=== PATIENT | female | born 1990 | race Caucasian/White ===

== ENCOUNTER 2017-12-09 03:51 | Emergency (ER) | payer OTHER ==
[~2017-12-09] VITALS: Ht 152.4 cm; Wt 77.6 kg
[2017-12-09 05:13] LABS: RAPID INFLUENZA A Negative (Negative); RAPID INFLUENZA B Negative (Negative)
[2017-12-09 05:27] LABS: BASOPHILS # (AUTO) 0.02 x10^3/uL (0-0.1); BASOPHILS % (AUTO) 0 % (0-1); EOSINOPHILS # (AUTO) 0.05 x10^3/uL (0-0.4); EOSINOPHILS % (AUTO) 1 % (1-7); LYMPHOCYTES # (AUTO) 2.46 x10^3/uL (1-3.4); LYMPHOCYTES % (AUTO) 36 % (22-44); MD NO; MEAN CORPUSCULAR HEMOGLOBIN 32.7 pg (27.0-34.8); MEAN CORPUSCULAR HGB CONC 34.7 g/dL (32.4-35.8); MEAN CORPUSCULAR VOLUME 94.4 fL (80-100); MEAN PLATELET VOLUME 7.1 fL (7.4-10.4); MONOCYTES # (AUTO) 0.33 x10^3/uL (0.2-0.8); MONOCYTES % (AUTO) 5 % (2-9); NEUTROPHILS # (AUTO) 4.01 x10^3/uL (1.8-6.8); NEUTROPHILS % (AUTO) 58 % (42-75); PLATELET COUNT 283 x10^3/uL (130-400); RED BLOOD COUNT 4.23 x10^6/uL (3.82-5.3); RED CELL DISTRIBUTION WIDTH 14.5 % (9.6-15.2)
[2017-12-09 05:35] LABS: MICROSCOPIC NOT IND
[2017-12-09 05:37] LABS: CULTURE INDICATED? NO
[2017-12-09 05:38] LABS: ALANINE AMINOTRANSFERASE 67 U/L (12-78); ALBUMIN 2.8 g/dL (3.4-5.0); ANION GAP 8 mmol/L (5-15); CALCIUM 8.1 mg/dL (8.5-10.1); CHLORIDE 105 mmol/L (98-107); CREATININE 0.59 mg/dL (0.55-1.02)
[2017-12-09 05:56] LABS: ALKALINE PHOSPHATASE 283 U/L (45-117); BILIRUBIN,TOTAL 0.8 mg/dL (0.2-1.0); TOTAL PROTEIN 6.8 g/dL (6.4-8.2)
[2017-12-09 06:48] VITALS: BP 119/78
== END 2017-12-09 07:45 | disposition home or self-care (01) ==
LOC: ED 06:12
DX: O26.892 Other specified pregnancy related conditions, second trimester (principal); Z3A.17 17 weeks gestation of pregnancy; K80.50 Calculus of bile duct without cholangitis or cholecystitis without obstruction; J00 Acute nasopharyngitis [common cold]; R05 Cough; R10.2 Pelvic and perineal pain; R10.32 Left lower quadrant pain
CPT/HCPCS: 36415; 71046; 76700; 76805; 80053; 81003; 83690; 84702; 85025; 87081; 87400; 87880; 99285

== ENCOUNTER 2018-02-24 10:56 | Outpatient (CLI) | payer OTHER ==
[~2018-02-24] VITALS: Ht 152.4 cm; Wt 78.2 kg
[2018-02-24 11:22] VITALS: BP 105/59
[2018-02-24] MEDS ORDERED: PREN-3 PO (11:30)
== END 2018-02-24 11:35 | disposition home or self-care (01) ==
LOC: LDOP 10:56
PROVIDERS: ATTEND Obstetrics & Gynecology
DX: O26.899 Other specified pregnancy related conditions, unspecified trimester (principal); R10.9 Unspecified abdominal pain; Z3A.00 Weeks of gestation of pregnancy not specified
CPT/HCPCS: 59025; 99211; G0463

== ENCOUNTER 2018-02-24 11:44 | Observation (INO) | payer OTHER ==
[~2018-02-24] VITALS: Ht 152.4 cm; Wt 78.9 kg
[~2018-02-24 11:44] MED LIST: PREN-3 PO
[2018-02-24] MEDS ORDERED: SODIUM CHLORIDE FLUSH 10ML SYR IVF ONE (12:30)
[2018-02-24 12:55] LABS: BASOPHILS # (AUTO) 0.04 x10^3/uL (0-0.1); BASOPHILS % (AUTO) 0 % (0-1); EOSINOPHILS # (AUTO) 0.12 x10^3/uL (0-0.4); EOSINOPHILS % (AUTO) 1 % (1-7); LYMPHOCYTES # (AUTO) 2.17 x10^3/uL (1-3.4); LYMPHOCYTES % (AUTO) 20 % (22-44); MD NO; MEAN CORPUSCULAR HEMOGLOBIN 33.5 pg (27.0-34.8); MEAN CORPUSCULAR HGB CONC 34.3 g/dL (32.4-35.8); MEAN CORPUSCULAR VOLUME 97.7 fL (80-100); MEAN PLATELET VOLUME 7.1 fL (7.4-10.4); MONOCYTES # (AUTO) 0.37 x10^3/uL (0.2-0.8); MONOCYTES % (AUTO) 4 % (2-9); NEUTROPHILS # (AUTO) 8.15 x10^3/uL (1.8-6.8); NEUTROPHILS % (AUTO) 75 % (42-75); PLATELET COUNT 312 x10^3/uL (130-400); RED BLOOD COUNT 4.18 x10^6/uL (3.82-5.3); RED CELL DISTRIBUTION WIDTH 13.7 % (9.6-15.2)
[2018-02-24 13:01] LABS: MICROSCOPIC AUTO
[2018-02-24 13:02] LABS: CULTURE INDICATED? YES
[2018-02-24 13:07] LABS: ALANINE AMINOTRANSFERASE 24 U/L (12-78); ANION GAP 14 mmol/L (5-15); CALCIUM 9.2 mg/dL (8.5-10.1); CHLORIDE 107 mmol/L (98-107)
[2018-02-24 13:09] LABS: ALKALINE PHOSPHATASE 96 U/L (45-117); BILIRUBIN,TOTAL 0.5 mg/dL (0.2-1.0); TOTAL PROTEIN 6.9 g/dL (6.4-8.2)
[2018-02-24 16:15] VITALS: BP 102/41
[2018-02-24] MEDS ORDERED: ONDANSETRON 2MG/ML, 2ML IV PRN (19:30)
[2018-02-24] MEDS ORDERED: DIPHENHYDRAMINE 50 MG/ML, 1ML IVPush PRN (19:30)
[2018-02-24] MEDS ORDERED: ONDANSETRON ODT 4 MG PO PRN (19:30)
[2018-02-24] MEDS ORDERED: LACTATED RINGERS 1,000 ML IV SCH (19:30)
[2018-02-24] MEDS ORDERED: MORPHINE SULFATE 4 MG/ML, 1ML IV PRN (19:30)
== END 2018-02-24 20:44 | disposition home or self-care (01) ==
LOC: ED 14:21 → EDIP 14:22 → ED 14:32 → 3NE 15:15
PROVIDERS: ADMIT Colon & Rectal Surgery; ATTEND Colon & Rectal Surgery
DX: O26.613 Liver and biliary tract disorders in pregnancy, third trimester (principal); O26.893 Other specified pregnancy related conditions, third trimester; K80.20 Calculus of gallbladder without cholecystitis without obstruction; N13.30 Unspecified hydronephrosis; Z3A.28 28 weeks gestation of pregnancy
CPT/HCPCS: 36415; 76700; 80053; 81001; 85025; 87086; 99285; G0378

== ENCOUNTER 2018-11-16 18:10 | Emergency (ER) | payer OTHER ==
[~2018-11-16] VITALS: Ht 165.1 cm; Wt 75.6 kg
[~2018-11-16 18:10] MED LIST changes: +HYDR-3240 PO; +IBUP-1222 PO
[2018-11-16 18:18] VITALS: BP 140/85
[2018-11-16] MEDS ORDERED: MORPHINE SULFATE 4 MG/ML, 1ML IVPush PRN (18:30)
[2018-11-16] MEDS ORDERED: ONDANSETRON 2MG/ML, 2ML IVPush ONE (18:30)
[2018-11-16] MEDS ORDERED: SODIUM CHLORIDE FLUSH 10ML SYR IVF ONE (18:30)
[2018-11-16] MEDS ORDERED: MORPHINE SULFATE 4 MG/ML, 1ML ONE (18:31)
[2018-11-16] MEDS ORDERED: ONDANSETRON 2MG/ML, 2ML ONE (18:31)
[2018-11-16 18:42] LABS: BASOPHILS # (AUTO) 0.06 x10^3/uL (0-0.1); BASOPHILS % (AUTO) 1 % (0-1); EOSINOPHILS # (AUTO) 0.28 x10^3/uL (0-0.4); EOSINOPHILS % (AUTO) 3 % (1-7); LYMPHOCYTES # (AUTO) 3.25 x10^3/uL (1-3.4); LYMPHOCYTES % (AUTO) 31 % (22-44); MD NO; MEAN CORPUSCULAR HEMOGLOBIN 33.3 pg (27.0-34.8); MEAN CORPUSCULAR HGB CONC 34.8 g/dL (32.4-35.8); MEAN CORPUSCULAR VOLUME 95.8 fL (80-100); MEAN PLATELET VOLUME 7.9 fL (7.4-10.4); MONOCYTES # (AUTO) 0.48 x10^3/uL (0.2-0.8); MONOCYTES % (AUTO) 5 % (2-9); NEUTROPHILS # (AUTO) 6.47 x10^3/uL (1.8-6.8); NEUTROPHILS % (AUTO) 61 % (42-75); PLATELET COUNT 375 x10^3/uL (130-400); RED BLOOD COUNT 5.07 x10^6/uL (3.82-5.3); RED CELL DISTRIBUTION WIDTH 12.6 % (9.6-15.2)
[2018-11-16] MEDS ORDERED: ONDANSETRON ODT 4 MG ONE (18:42)
[2018-11-16] MEDS ORDERED: HYDROmorphone 2 MG/ML, 1ML ONE (18:43)
[2018-11-16 18:50] LABS: ALANINE AMINOTRANSFERASE 36 U/L (12-78); ALBUMIN 4.1 g/dL (3.4-5.0); ANION GAP 7 mmol/L (5-15); CALCIUM 8.9 mg/dL (8.5-10.1); CHLORIDE 105 mmol/L (98-107); CREATININE 0.87 mg/dL (0.55-1.02)
[2018-11-16 18:55] LABS: ALKALINE PHOSPHATASE 78 U/L (45-117); BILIRUBIN,TOTAL 0.6 mg/dL (0.2-1.0); TOTAL PROTEIN 8.3 g/dL (6.4-8.2)
[2018-11-16 18:57] LABS: MICROSCOPIC AUTO
--- NOTE | 2018-11-16 18:57 | NUR ---
PT REPORTS "GALLBLADDER ATTACK" STATES HX OF SAME, LAST TIME SHE WAS 32 WEEKS PREG "AND THEY DIDNT DO SURGERY BECAUSE I WAS " THAT WAS ABOUT 8 MO AGO. STATES THIS FEELS THE SAME JUST WORSE. REPORTS NAUSEA, DENIES VOMITING.
--- NOTE | 2018-11-16 18:57 | NUR ---
LABS DRAWN, PT HESITANT FOR IV START. PT EDUCATED ON REASON, (MED ADMINISTRATION AND TO ALLOW FOR FURTHER CARE) PT REQUESTING TO HOLD OFF ON IV UNTIL NEEDED AND REQ IM AND PO MEDICATIONS. PA AWARE, ORDERS CHANGED.
[2018-11-16 18:59] LABS: CULTURE INDICATED? YES
[2018-11-16] MEDS ORDERED: HYDROmorphone 1 MG/ML, 1ML IM ONE (19:00)
[2018-11-16] MEDS ORDERED: ONDANSETRON ODT 4 MG PO ONE (19:00)
--- NOTE | 2018-11-16 19:28 | NUR ---
PT REPORTS DECREASED PAIN, PA IN FOR UPDATE, TO EVAL, PT DENIES ANY QUESTIONS AT THIS TIME
== END 2018-11-16 20:13 | disposition home or self-care (01) ==
LOC: ED 19:15
DX: K80.20 Calculus of gallbladder without cholecystitis without obstruction (principal); N30.00 Acute cystitis without hematuria
CPT/HCPCS: 36415; 76700; 80053; 81001; 83690; 84703; 85025; 87086; 96372; 99284; J1170; Q0162

== ENCOUNTER 2019-02-09 11:49 | Emergency (ER) | payer SELFPAY ==
[~2019-02-09] VITALS: Ht 152.4 cm; Wt 78.6 kg
--- NOTE | 2019-02-09 12:05 | NUR ---
First contact pt. Pt states, "I was at my desk at work and stood up to go on my break and started having abdominal pain (RLQ and LLQ), lower back pain and leg tingling." Per pt, "I just ate 30 minutes ago (1130), and breakfast at 7am. Both my legs feel tingling and my legs from hips to knees on the front feels abnormal." ED MD at bedside. ED RN nel for physical assessment with HELLEN. Pt states her last period was "2 weeks ago". NADN. Pt connected to NIBP and continous pulse ox. Call light within reach.
[2019-02-09 12:29] LABS: MICROSCOPIC AUTO
[2019-02-09] MEDS ORDERED: MORPHINE SULFATE 4 MG/ML, 1ML IVPush PRN (12:30)
[2019-02-09] MEDS ORDERED: ONDANSETRON 2MG/ML, 2ML IVPush PRN (12:30)
[2019-02-09 12:32] LABS: CULTURE INDICATED? YES
[2019-02-09] MEDS ORDERED: ONDANSETRON 2MG/ML, 2ML ONE (12:38)
[2019-02-09] MEDS ORDERED: KETOROLAC 30 MG/1 ML ONE (12:38)
[2019-02-09 12:52] LABS: BASOPHILS # (AUTO) 0.05 x10^3/uL (0-0.1); BASOPHILS % (AUTO) 1 % (0-1); EOSINOPHILS # (AUTO) 0.56 x10^3/uL (0-0.4); EOSINOPHILS % (AUTO) 6 % (1-7); LYMPHOCYTES # (AUTO) 2.76 x10^3/uL (1-3.4); LYMPHOCYTES % (AUTO) 30 % (22-44); MD NO; MEAN CORPUSCULAR HEMOGLOBIN 32.9 pg (27.0-34.8); MEAN CORPUSCULAR HGB CONC 34.7 g/dL (32.4-35.8); MEAN CORPUSCULAR VOLUME 94.8 fL (80-100); MEAN PLATELET VOLUME 7.8 fL (7.4-10.4); MONOCYTES # (AUTO) 0.48 x10^3/uL (0.2-0.8); MONOCYTES % (AUTO) 5 % (2-9); NEUTROPHILS # (AUTO) 5.43 x10^3/uL (1.8-6.8); NEUTROPHILS % (AUTO) 59 % (42-75); PLATELET COUNT 317 x10^3/uL (130-400); RED BLOOD COUNT 5.23 x10^6/uL (3.82-5.3); RED CELL DISTRIBUTION WIDTH 12.9 % (9.6-15.2)
[2019-02-09 12:59] LABS: ALANINE AMINOTRANSFERASE 58 U/L (12-78); ALBUMIN 4.6 g/dL (3.4-5.0); ANION GAP 6 mmol/L (5-15); CALCIUM 9.4 mg/dL (8.5-10.1); CHLORIDE 105 mmol/L (98-107); CREATININE 0.82 mg/dL (0.55-1.02)
[2019-02-09] MEDS ORDERED: KETOROLAC 30 MG/1 ML IVPush ONE (13:00)
[2019-02-09 13:05] LABS: ALKALINE PHOSPHATASE 79 U/L (45-117); BILIRUBIN,TOTAL 0.8 mg/dL (0.2-1.0); TOTAL PROTEIN 8.3 g/dL (6.4-8.2)
--- NOTE | 2019-02-09 13:17 | NUR ---
LATE NOTE TONG FOR 1230: Pt requesting "something less strong than morphine, I don't like it." ED MD aware. Provided at 1243 pt medication per EMAR. Pt appreciative.
--- NOTE | 2019-02-09 13:17 | NUR ---
Pt transported on gurney to imaging.
--- NOTE | 2019-02-09 15:20 | NUR ---
PT. WAS GIVEN DISCHARGE INSTRUCTIONS AND SCRIPTS. UNDERSTANDING WAS VERBALIZED ALONG WITH WILLINGNESS TO COMPLY. PT.'S IV WAS DCD',CATH TIP INTACT. PRESSURE HELD WITH HEMOSTASIS ACHIEVED. PT. WAS AMBULATORY TO THE DISCHARGE DESK. VSS.
[2019-02-09 15:21] VITALS: BP 109/70
[2019-02-09] MEDS ORDERED: OMNIPAQUE 350 MG/ML, 100ML BOTTLE ONE (15:58)
== END 2019-02-09 15:26 | disposition home or self-care (01) ==
LOC: ED 13:44
DX: R10.30 Lower abdominal pain, unspecified (principal)
CPT/HCPCS: 36415; 74177; 76830; 80053; 81001; 83690; 84703; 85025; 87086; 96374; 96375; 99284; J1885; J2405; Q9967

== ENCOUNTER 2019-05-26 19:27 | Emergency (ER) | payer SELFPAY ==
[~2019-05-26] VITALS: Ht 152.4 cm; Wt 82.7 kg
[2019-05-26 20:25] LABS: BASOPHILS # (AUTO) 0.02 x10^3/uL (0-0.1); BASOPHILS % (AUTO) 0 % (0-1); EOSINOPHILS # (AUTO) 0.38 x10^3/uL (0-0.4); EOSINOPHILS % (AUTO) 4 % (1-7); LYMPHOCYTES # (AUTO) 3.04 x10^3/uL (1-3.4); LYMPHOCYTES % (AUTO) 34 % (22-44); MD NO; MEAN CORPUSCULAR HEMOGLOBIN 32.8 pg (27.0-34.8); MEAN CORPUSCULAR HGB CONC 33.6 g/dL (32.4-35.8); MEAN CORPUSCULAR VOLUME 97.8 fL (80-100); MEAN PLATELET VOLUME 7.4 fL (7.4-10.4); MONOCYTES # (AUTO) 0.44 x10^3/uL (0.2-0.8); MONOCYTES % (AUTO) 5 % (2-9); NEUTROPHILS % (AUTO) 56 % (42-75); PLATELET COUNT 350 x10^3/uL (130-400); RED BLOOD COUNT 4.64 x10^6/uL (3.82-5.3)
[2019-05-26 20:29] LABS: ALANINE AMINOTRANSFERASE 46 U/L (12-78); ALBUMIN 3.8 g/dL (3.4-5.0); ANION GAP 6 mmol/L (5-15); CHLORIDE 107 mmol/L (98-107); CREATININE 0.73 mg/dL (0.55-1.02)
[2019-05-26 20:34] LABS: ALKALINE PHOSPHATASE 69 U/L (45-117); BILIRUBIN,TOTAL 0.6 mg/dL (0.2-1.0); TOTAL PROTEIN 7.6 g/dL (6.4-8.2)
[2019-05-26 20:39] LABS: CULTURE INDICATED? YES; MICROSCOPIC INDICATED
[2019-05-26 20:52] VITALS: BP 113/53
[2019-05-31] MEDS ORDERED: PRENATAL (11:20)
== END 2019-05-26 21:58 | disposition home or self-care (01) ==
LOC: ED 21:38
DX: O26.891 Other specified pregnancy related conditions, first trimester (principal); R10.32 Left lower quadrant pain; Z3A.01 Less than 8 weeks gestation of pregnancy
CPT/HCPCS: 36415; 76801; 80053; 81001; 84702; 85025; 86901; 87086; 99284

== ENCOUNTER 2019-05-31 10:52 | Emergency (ER) | payer SELFPAY ==
[~2019-05-31] VITALS: Ht 152.4 cm; Wt 82.7 kg
[2019-05-31 12:49] VITALS: BP 119/72
== END 2019-05-31 13:55 | disposition home or self-care (01) ==
LOC: ED 13:49
DX: O26.891 Other specified pregnancy related conditions, first trimester (principal); R10.32 Left lower quadrant pain; Z3A.08 8 weeks gestation of pregnancy
CPT/HCPCS: 36415; 76801; 81001; 84702; 87086; 99284

== ENCOUNTER 2019-08-06 17:56 | Emergency (ER) | payer OTHER ==
[~2019-08-06] VITALS: Ht 152.4 cm; Wt 79.5 kg
[~2019-08-06 17:56] MED LIST changes: +PRENATAL
[2019-08-06 17:59] VITALS: BP 108/72
--- NOTE | 2019-08-06 18:30 | NUR ---
DIARRHEA AND ABDOMINAL CRAMPING IN WAVES FOR 2 DAYS. 16 WEEKS
[2019-08-06 19:00] LABS: BASOPHILS # (AUTO) 0.02 x10^3/uL (0-0.1); BASOPHILS % (AUTO) 0 % (0-1); EOSINOPHILS # (AUTO) 0.11 x10^3/uL (0-0.4); EOSINOPHILS % (AUTO) 2 % (1-7); LYMPHOCYTES # (AUTO) 1.94 x10^3/uL (1-3.4); LYMPHOCYTES % (AUTO) 29 % (22-44); MD NO; MEAN CORPUSCULAR HEMOGLOBIN 34.2 pg (27.0-34.8); MEAN CORPUSCULAR HGB CONC 34.6 g/dL (32.4-35.8); MEAN CORPUSCULAR VOLUME 98.8 fL (80-100); MEAN PLATELET VOLUME 7.2 fL (7.4-10.4); MONOCYTES # (AUTO) 0.34 x10^3/uL (0.2-0.8); MONOCYTES % (AUTO) 5 % (2-9); NEUTROPHILS # (AUTO) 4.31 x10^3/uL (1.8-6.8); NEUTROPHILS % (AUTO) 64 % (42-75); PLATELET COUNT 296 x10^3/uL (130-400); RED BLOOD COUNT 4.03 x10^6/uL (3.82-5.3); RED CELL DISTRIBUTION WIDTH 14.5 % (9.6-15.2)
[2019-08-06] MEDS ORDERED: SODIUM CHLORIDE 0.9% 1,000ML IVBOLUS ONE (19:00)
[2019-08-06] MEDS ORDERED: SODIUM CHLORIDE FLUSH 10ML SYR IVF ONE (19:00)
--- NOTE | 2019-08-06 19:02 | NUR ---
REPORT TO SEE CAMARILLO
[2019-08-06 19:12] LABS: ALBUMIN 3.1 g/dL (3.4-5.0); ANION GAP 8 mmol/L (5-15); CALCIUM 8.7 mg/dL (8.5-10.1); CHLORIDE 107 mmol/L (98-107)
[2019-08-06 19:16] LABS: ALANINE AMINOTRANSFERASE 29 U/L (12-78); ALKALINE PHOSPHATASE 93 U/L (45-117); BILIRUBIN,TOTAL 0.7 mg/dL (0.2-1.0); TOTAL PROTEIN 6.8 g/dL (6.4-8.2)
[2019-08-06 19:54] LABS: MICROSCOPIC AUTO
[2019-08-06 19:55] LABS: CULTURE INDICATED? YES
--- NOTE | 2019-08-06 20:01 | NUR ---
urine to lab and L&D RN to bedside and FHT at 150
== END 2019-08-06 21:33 | disposition home or self-care (01) ==
LOC: ED 19:00
DX: O26.892 Other specified pregnancy related conditions, second trimester (principal); R19.7 Diarrhea, unspecified; Z3A.16 16 weeks gestation of pregnancy
CPT/HCPCS: 36415; 80053; 81001; 83690; 85025; 87086; 96360; 99283; J7030

== ENCOUNTER 2019-10-10 12:22 | Emergency (ER) | payer OTHER ==
[~2019-10-10] VITALS: Ht 152.4 cm; Wt 82.1 kg
--- NOTE | 2019-10-10 12:54 | NUR ---
Pt has been seen by L&D and cleared to be seen in ER for possible allergic RXN. L&D would like pt to return after treatment in ED for NST.
--- NOTE | 2019-10-10 13:06 | NUR ---
Pt to ED from work. allergic rx at 1130 to unknown substance (had apple and water today). benadryl 25 mg at 1140. noted red rash face/back/belly and itchiness. no SOB. previous allergic rx to pork 5 years ago. no other allergies. 25 weeks . went to L&D, was sent to ED, pt to go to LD after ED dc. vss. lab at bedside. awaiting md quinn. call delaney in reach. pt calm, cooperative, NAD, slight redness noted to back where pt was scratching.
[2019-10-10] MEDS ORDERED: prenatal PO (13:10)
[2019-10-10 13:11] LABS: BASOPHILS # (AUTO) 0.04 x10^3/uL (0-0.1); BASOPHILS % (AUTO) 0 % (0-1); EOSINOPHILS % (AUTO) 2 % (1-7); LYMPHOCYTES # (AUTO) 2.31 x10^3/uL (1-3.4); LYMPHOCYTES % (AUTO) 24 % (22-44); MD NO; MEAN CORPUSCULAR HEMOGLOBIN 34.6 pg (27.0-34.8); MEAN CORPUSCULAR HGB CONC 34.8 g/dL (32.4-35.8); MEAN CORPUSCULAR VOLUME 99.3 fL (80-100); MEAN PLATELET VOLUME 6.6 fL (7.4-10.4); MONOCYTES # (AUTO) 0.32 x10^3/uL (0.2-0.8); MONOCYTES % (AUTO) 3 % (2-9); NEUTROPHILS # (AUTO) 6.67 x10^3/uL (1.8-6.8); NEUTROPHILS % (AUTO) 70 % (42-75); PLATELET COUNT 333 x10^3/uL (130-400); RED BLOOD COUNT 4.26 x10^6/uL (3.82-5.3); RED CELL DISTRIBUTION WIDTH 13.7 % (9.6-15.2)
[2019-10-10 13:21] LABS: ALANINE AMINOTRANSFERASE 25 U/L (12-78); ALBUMIN 3.5 g/dL (3.4-5.0); ANION GAP 8 mmol/L (5-15); CALCIUM 9.3 mg/dL (8.5-10.1); CHLORIDE 105 mmol/L (98-107); CREATININE 0.62 mg/dL (0.55-1.02)
[2019-10-10 13:23] LABS: ALKALINE PHOSPHATASE 94 U/L (45-117); BILIRUBIN,TOTAL 0.5 mg/dL (0.2-1.0)
[2019-10-10] MEDS ORDERED: DIPHENHYDRAMINE 25 MG CAPSULE PO ONE (13:30)
--- NOTE | 2019-10-10 13:48 | NUR ---
UA COLLECTED AND SENT TO LAB
[2019-10-10] MEDS ORDERED: DIPHENHYDRAMINE 25 MG CAPSULE ONE (14:08)
[2019-10-10 14:09] LABS: CULTURE INDICATED? YES; MICROSCOPIC INDICATED
--- NOTE | 2019-10-10 14:41 | NUR ---
AWAITING MICRO RESULTS ON UA AT THIS TIME. CALL LIGHT WITHIN REACH. AWAITING DISPO
--- NOTE | 2019-10-10 14:45 | NUR ---
PT STATES FEELING LESS ITCHY AFTER MEDICATION.
[2019-10-10 15:05] VITALS: BP 107/64
--- NOTE | 2019-10-10 15:07 | NUR ---
ALL RESUTLS BACK AT THIS TIME, CHART UP FOR RECHECK
--- NOTE | 2019-10-10 15:40 | NUR ---
TASK RN: Patient/Caregiver given discharge instructions and they have confirmed that they understand the instructions. Patient ambulatory with steady gait. PT TAKEN VIA WHEELCHAIR BACK TO L&D FOR NST. PT LEFT WITH ALL PERSONAL BELONGINGS. L&D AWARE PT IS COMING BACK TO THEM
== END 2019-10-10 15:44 | disposition home or self-care (01) ==
LOC: ED 15:35
DX: O23.12 Infections of bladder in pregnancy, second trimester (principal); L50.0 Allergic urticaria; Z3A.26 26 weeks gestation of pregnancy
CPT/HCPCS: 36415; 80053; 81001; 85025; 87086; 99283; J7509; Q0163

== ENCOUNTER 2019-10-10 15:51 | Outpatient (CLI) | payer OTHER ==
[~2019-10-10] VITALS: Ht 152.4 cm; Wt 82.7 kg
[~2019-10-10 15:51] MED LIST changes: +prenatal PO
[2019-10-10 16:22] VITALS: BP 117/66
== END 2019-10-10 16:50 | disposition home or self-care (01) ==
LOC: LDOP 15:51
PROVIDERS: ATTEND Obstetrics & Gynecology
DX: Z34.02 Encounter for supervision of normal first pregnancy, second trimester (principal); Z3A.26 26 weeks gestation of pregnancy
CPT/HCPCS: 99211; G0463

== ENCOUNTER 2019-12-02 18:29 | Outpatient (CLI) | payer OTHER ==
[~2019-12-02] VITALS: Ht 152.4 cm; Wt 84.5 kg
[2019-12-02 18:31] VITALS: BP 104/61
== END 2019-12-02 19:24 | disposition home or self-care (01) ==
LOC: LDOP 18:29
PROVIDERS: ATTEND Obstetrics & Gynecology
DX: O36.8130 Decreased fetal movements, third trimester, not applicable or unspecified (principal); Z3A.32 32 weeks gestation of pregnancy
CPT/HCPCS: 59025; 76819; 99211; G0463

== ENCOUNTER 2019-12-19 14:46 | Outpatient (CLI) | payer OTHER ==
[~2019-12-19] VITALS: Ht 152.4 cm; Wt 84.5 kg
[2019-12-19 14:55] VITALS: BP 121/59
[2019-12-19] MEDS ORDERED: PREN1TAB60 PO (15:03)
[2019-12-19] MEDS ORDERED: ONDANSETRON ODT 4 MG ONE (15:18)
[2019-12-19] MEDS ORDERED: TERBUTALINE 1 MG/ML, 1ML ONE (15:18)
[2019-12-19 15:28] LABS: MICROSCOPIC INDICATED
[2019-12-19] MEDS ORDERED: ONDANSETRON ODT 4 MG PO ONE (15:30)
[2019-12-19] MEDS ORDERED: TERBUTALINE 1 MG/ML, 1ML SQ ONE (15:30)
[2019-12-19] MEDS ORDERED: ACETAMINOPHEN 500 MG TABLET ONE (16:53)
[2019-12-19] MEDS ORDERED: ACETAMINOPHEN 500 MG TABLET PO ONE (17:00)
[2019-12-19] MEDS ORDERED: BETAMETHASONE 6 MG/ML, 5ML IM ONE (19:30)
== END 2019-12-19 19:15 | disposition home or self-care (01) ==
LOC: LDOP 14:46
PROVIDERS: ATTEND Obstetrics & Gynecology
DX: O60.03 Preterm labor without delivery, third trimester (principal); Z3A.34 34 weeks gestation of pregnancy
CPT/HCPCS: 59025; 81001; 87086; 96372; 99211; J0702; J3105; Q0162; G0463

== ENCOUNTER 2019-12-23 16:08 | Outpatient (CLI) | payer OTHER ==
[~2019-12-23] VITALS: Ht 152.4 cm; Wt 84.5 kg
[~2019-12-23 16:08] MED LIST changes: +PREN1TAB60 PO
[2019-12-23 17:25] VITALS: BP 103/62
[2019-12-23 17:51] LABS: MICROSCOPIC INDICATED
[2019-12-23] MEDS ORDERED: DIPH25CA61 PO (18:48)
[2019-12-23 19:00] LABS: BASOPHILS # (AUTO) 0.03 x10^3/uL (0-0.1); BASOPHILS % (AUTO) 0 % (0-1); EOSINOPHILS # (AUTO) 0.14 x10^3/uL (0-0.4); EOSINOPHILS % (AUTO) 1 % (1-7); LYMPHOCYTES # (AUTO) 2.36 x10^3/uL (1-3.4); LYMPHOCYTES % (AUTO) 22 % (22-44); MD NO; MEAN CORPUSCULAR HEMOGLOBIN 34.8 pg (27.0-34.8); MEAN CORPUSCULAR VOLUME 99.6 fL (80-100); MEAN PLATELET VOLUME 7.2 fL (7.4-10.4); MONOCYTES # (AUTO) 0.46 x10^3/uL (0.2-0.8); MONOCYTES % (AUTO) 4 % (2-9); NEUTROPHILS # (AUTO) 7.96 x10^3/uL (1.8-6.8); NEUTROPHILS % (AUTO) 73 % (42-75); PLATELET COUNT 277 x10^3/uL (130-400); RED BLOOD COUNT 4.24 x10^6/uL (3.82-5.3); RED CELL DISTRIBUTION WIDTH 13.7 % (9.6-15.2)
== END 2019-12-23 19:40 | disposition home or self-care (01) ==
LOC: LDOP 16:08
PROVIDERS: ATTEND Obstetrics & Gynecology
DX: O26.893 Other specified pregnancy related conditions, third trimester (principal); R10.9 Unspecified abdominal pain; Z3A.35 35 weeks gestation of pregnancy
CPT/HCPCS: 36415; 59025; 81001; 85025; 87086; 99211; G0463

== ENCOUNTER 2020-01-02 04:12 | Outpatient (CLI) | payer OTHER ==
[~2020-01-02] VITALS: Ht 152.4 cm; Wt 38.2 kg
[~2020-01-02 04:12] MED LIST changes: +DIPH25CA61 PO
[2020-01-02 04:50] LABS: MICROSCOPIC INDICATED
== END 2020-01-02 05:58 | disposition home or self-care (01) ==
LOC: LDOP 04:12
PROVIDERS: ATTEND Obstetrics & Gynecology
DX: O62.9 Abnormality of forces of labor, unspecified (principal); Z3A.36 36 weeks gestation of pregnancy
CPT/HCPCS: 59025; 81001; 87086; 89060; 99211; G0463; Q0114

== ENCOUNTER 2020-01-05 23:13 | Outpatient (CLI) | payer OTHER ==
[~2020-01-05] VITALS: Ht 152.4 cm; Wt 84.1 kg
[2020-01-05 23:42] VITALS: BP 116/66
== END 2020-01-06 00:36 | disposition home or self-care (01) ==
LOC: LDOP 23:13
PROVIDERS: ATTEND Obstetrics & Gynecology
DX: O42.913 Preterm premature rupture of membranes, unspecified as to length of time between rupture and onset of labor, third trimester (principal); Z3A.36 36 weeks gestation of pregnancy
CPT/HCPCS: 59025; 89060; 99211; G0463; Q0114

== ENCOUNTER 2020-01-13 21:12 | Inpatient (IN) | payer OTHER ==
[~2020-01-13] VITALS: Ht 152.4 cm; Wt 85.9 kg
[2020-01-13] MEDS ORDERED: OXYTOCIN 30U/ 0.9% NaCL 500ML 500 ML ONE (21:28)
[2020-01-13] MEDS ORDERED: FENTANYL PF 100 MCG/2ML ONE ×2 (21:28→22:13)
[2020-01-13] MEDS ORDERED: NEWBORN KIT ONE (21:28)
[2020-01-13] MEDS ORDERED: LACTATED RINGERS 1,000 ML IV SCH ×2 (21:29→21:30)
[2020-01-13] MEDS: D5%-LACTATED RINGERS 1,000 ML IV SCH (21:29)
[2020-01-13] MEDS ORDERED: OXYTOCIN 30U/ 0.9% NaCL 500ML 500 ML IV ONE (21:29)
[2020-01-13] MEDS ORDERED: LACTATED RINGERS 1,000 ML IVBOLUS PRN ×2 (21:30→22:00)
[2020-01-13] MEDS ORDERED: EPHEDRINE 50 MG/ML, 1ML IVPush PRN ×2 (21:30→22:00)
[2020-01-13] MEDS ORDERED: ONDANSETRON 2MG/ML, 2ML IVPush PRN (21:30)
[2020-01-13] MEDS ORDERED: FENTANYL PF 100 MCG/2ML IV PRN (21:30)
[2020-01-13] MEDS ORDERED: FENTANYL PF 100 MCG/2ML IVPush PRN (21:30)
[2020-01-13] MEDS ORDERED: TERBUTALINE 1 MG/ML, 1ML SQ PRN ×2 (21:30→22:00)
[2020-01-13] MEDS ORDERED: FENTANYL/BUPIV./NS/PF 250 ML EPIDCONT SCH ×2 (21:30→21:36)
[2020-01-13 21:54] VITALS: BP 120/76
[2020-01-13 21:58] LABS: BASOPHILS # (AUTO) 0.13 x10^3/uL (0-0.1); BASOPHILS % (AUTO) 1 % (0-1); EOSINOPHILS # (AUTO) 0.14 x10^3/uL (0-0.4); EOSINOPHILS % (AUTO) 1 % (1-7); LYMPHOCYTES # (AUTO) 2.25 x10^3/uL (1-3.4); LYMPHOCYTES % (AUTO) 18 % (22-44); MD NO; MEAN CORPUSCULAR HEMOGLOBIN 34.4 pg (27.0-34.8); MEAN CORPUSCULAR VOLUME 98.5 fL (80-100); MEAN PLATELET VOLUME 7.5 fL (7.4-10.4); MONOCYTES # (AUTO) 0.39 x10^3/uL (0.2-0.8); MONOCYTES % (AUTO) 3 % (2-9); NEUTROPHILS # (AUTO) 9.64 x10^3/uL (1.8-6.8); NEUTROPHILS % (AUTO) 77 % (42-75); PLATELET COUNT 273 x10^3/uL (130-400); RED BLOOD COUNT 4.14 x10^6/uL (3.82-5.3); RED CELL DISTRIBUTION WIDTH 13.6 % (9.6-15.2)
[2020-01-13] MEDS ORDERED: FENTANYL PF 500 MCG, BUPIVACAINE/PF 0.5%, 30ML 62.5 ML in SODIUM CHLORIDE 0.9% 177.5 ML EPIDCONT SCH (22:00)
[2020-01-13] MEDS ORDERED: BUPIVACAINE 0.25% ONE (22:13)
[2020-01-13] MEDS ORDERED: LIDOCAINE/PF 1.5%-EPI 1:200K, 30ML ONE (22:17)
[2020-01-14] MEDS: LACTATED RINGERS 1,000 ML IV SCH ×2 (00:18→05:36)
[2020-01-14] MEDS ORDERED: ONDANSETRON 2MG/ML, 2ML ONE (00:42)
[2020-01-14] MEDS ORDERED: IBUPROFEN 800 MG TABLET ONE (04:17)
[2020-01-14] MEDS ORDERED: OXYcodone IR 5MG TABLET PO PRN ×2 (04:30)
[2020-01-14] MEDS ORDERED: SIMETHICONE 80 MG CHEW TAB PO PRN (04:30)
[2020-01-14] MEDS ORDERED: DOCUSATE 100 MG CAPSULE PO PRN (04:30)
[2020-01-14] MEDS ORDERED: MISOPROSTOL 200 MCG TABLET PR PRN (04:30)
[2020-01-14] MEDS ORDERED: OXYTOCIN 30U/ 0.9% NaCL 500ML 500 ML ONE (04:34)
[2020-01-14] MEDS: OXYTOCIN 30U/ 0.9% NaCL 500ML 500 ML IV SCH ×2 (04:36→14:14)
[2020-01-14] MEDS: IBUPROFEN 800 MG TABLET PO PRN ×2 (04:36→16:56)
[2020-01-14] MEDS: D5%-LACTATED RINGERS 1,000 ML IV SCH (05:29)
[2020-01-14] MEDS ORDERED: CALCIUM CARBONATE 500 MG TAB.CHEW PO PRN (06:00)
[2020-01-14 07:24] VITALS: BP 104/70
[2020-01-14] MEDS: PRENATAL VIT/IRON/FA 1 EACH TABLET PO SCH (09:00)
[2020-01-14 12:08] LABS: MEAN CORPUSCULAR HEMOGLOBIN 34.3 pg (27.0-34.8); MEAN CORPUSCULAR HGB CONC 34.3 g/dL (32.4-35.8); MEAN CORPUSCULAR VOLUME 100.1 fL (80-100); MEAN PLATELET VOLUME 7.6 fL (7.4-10.4); PLATELET COUNT 260 x10^3/uL (130-400); RED BLOOD COUNT 4.23 x10^6/uL (3.82-5.3); RED CELL DISTRIBUTION WIDTH 13.3 % (9.6-15.2)
[2020-01-14 12:20] VITALS: BP 103/70
[2020-01-14 12:30] LABS: BASOPHILS # (AUTO) 0.09 x10^3/uL (0-0.1); BASOPHILS % (AUTO) 1 % (0-1); EOSINOPHILS # (AUTO) 0.12 x10^3/uL (0-0.4); EOSINOPHILS % (AUTO) 1 % (1-7); LYMPHOCYTES # (AUTO) 2.08 x10^3/uL (1-3.4); LYMPHOCYTES % (AUTO) 13 % (22-44); MD SCAN; MONOCYTES # (AUTO) 0.46 x10^3/uL (0.2-0.8); MONOCYTES % (AUTO) 3 % (2-9); NEUTROPHILS # (AUTO) 13.31 x10^3/uL (1.8-6.8); NEUTROPHILS % (AUTO) 83 % (42-75)
[2020-01-14 18:04] VITALS: BP 110/74
[2020-01-14 19:16] VITALS: BP 109/79
[2020-01-15] MEDS: OXYTOCIN 30U/ 0.9% NaCL 500ML 500 ML IV SCH ×2 (00:14→10:23)
[2020-01-15 01:20] VITALS: BP 102/79
[2020-01-15] MEDS: IBUPROFEN 800 MG TABLET PO PRN ×2 (01:20→09:46)
[2020-01-15 08:05] VITALS: BP 111/78
[2020-01-15] MEDS: PRENATAL VIT/IRON/FA 1 EACH TABLET PO SCH (09:46)
[2020-01-15] MEDS ORDERED: IBUP-1222 PO (11:56)
== END 2020-01-15 13:31 | disposition home or self-care (01) | DRG 807 ==
LOC: LDOP 21:12 → LDIP 21:26 → 2NW 01-14 07:58
PROVIDERS: ADMIT Obstetrics & Gynecology; ATTEND Obstetrics & Gynecology
PROC: 10E0XZZ Delivery of Products of Conception, External Approach (ICD-10-PCS; principal; 2020-01-14)
PROC: 0KQM0ZZ Repair Perineum Muscle, Open Approach (ICD-10-PCS; 2020-01-14)
PROC: 10907ZC Drainage of Amniotic Fluid, Therapeutic from Products of Conception, Via Natural or Artificial Opening (ICD-10-PCS; 2020-01-14)
PROC: 3E0R3BZ Introduction of Anesthetic Agent into Spinal Canal, Percutaneous Approach (ICD-10-PCS; 2020-01-14)
PROC: 00HU33Z Insertion of Infusion Device into Spinal Canal, Percutaneous Approach (ICD-10-PCS; 2020-01-14)
DX: O70.1 Second degree perineal laceration during delivery (principal); Z37.0 Single live birth; Z3A.38 38 weeks gestation of pregnancy
CPT/HCPCS: 36415; J3490; S0020; 85025; 86592; 86850; 86900; G0378; J2405; J3010; J2590; J7050; J7120